=== PATIENT | female | born 2000 | race Two or more races ===

== ENCOUNTER 2024-06-22 08:30 | Outpatient (CLI) | payer OTHER | END 2024-06-22 08:32 | disposition home or self-care (01) | LOC: PRENATAL 08:30 | PROVIDERS: ATTEND Obstetrics & Gynecology Maternal & Fetal Medicine | DX: O36.80X0 Pregnancy with inconclusive fetal viability, not applicable or unspecified (principal); Z36.82 Encounter for antenatal screening for nuchal translucency; Z3A.13 13 weeks gestation of pregnancy ==

== ENCOUNTER 2024-08-07 14:55 | Outpatient (CLI) | payer OTHER | END 2024-08-07 14:56 | disposition home or self-care (01) | LOC: PRENATAL 14:55 | PROVIDERS: ATTEND Obstetrics & Gynecology Maternal & Fetal Medicine | DX: O44.00 Complete placenta previa NOS or without hemorrhage, unspecified trimester (principal); Z3A.20 20 weeks gestation of pregnancy ==

== ENCOUNTER → 2024-11-09 10:34 | Outpatient (CLI) | payer OTHER | END | disposition home or self-care (01) | LOC: PRENATAL 10:34 | PROVIDERS: ATTEND Obstetrics & Gynecology Maternal & Fetal Medicine | DX: O26.849 Uterine size-date discrepancy, unspecified trimester (principal); O36.8199 Decreased fetal movements, unspecified trimester, other fetus; Z3A.34 34 weeks gestation of pregnancy ==

== ENCOUNTER 2024-12-13 19:40 | Inpatient (IN) | payer OTHER ==
[~2024-12-13] VITALS: Ht 157.5 cm; Wt 81.6 kg
[2024-12-13 19:04] VITALS: BP 124/79
[2024-12-13] MEDS ORDERED: PRENATAL TABLE1 EAC4 PO (19:57)
[2024-12-13] MEDS ORDERED: RINGERS SOLUTION,LACTATED 1,000 ML IV SCH (20:00)
[2024-12-13 20:14] LABS: BASO % 0.3 % (0.1-1.2); EOS # 0.17 (0.04-0.54); EOS % 2.2 % (0.7-7.0); LYMPH # 1.88 (1.18-3.74); LYMPH % 24.3 % (19.3-53.1); MEAN PLATELET VOLUME 10.80 fl (9.4-12.4); MONO # 0.60 (0.24-0.82); MONO % 7.8 % (4.7-12.5); NEUT # 5.03 (1.56-6.13); NEUT % 64.9 % (34.0-71.1); RED CELL DISTRIBUTION WIDTH 13.1 % (11.6-14.4)
[2024-12-13 20:16] LABS: URINE APPEARANCE Clear; URINE BILIRRUBIN Negative (NEGATIVE); URINE BLOOD Large; URINE COLOR Yellow; URINE GLUCOSE Negative (NEGATIVE); URINE KETONE Negative (NEGATIVE); URINE LEUKOCYTE Small; URINE NITRATE Negative; URINE PROTEIN Negative (NEGATIVE); URINE UROBILINOGEN 0.2 E.U./dl
[2024-12-13 20:19] LABS: URINE BACTERIA 543.5 uL (0.0-1933); URINE EPITHELIAL CELLS 30.6 uL (0.0-38.8); URINE RBC 216.0 uL (0.0-20.8); URINE WBC 15.8 uL (0.0-23.2)
[2024-12-13 20:35] LABS: URINE CAST 0.00 uL (0.0-1.40)
[2024-12-13 23:12] VITALS: BP 127/75
[2024-12-14] VITALS (10 sets, daily range): BP systolic 108–138; BP diastolic 68–82
[2024-12-14] MEDS ORDERED: AMPICILLIN SODIUM 2,000 MG VIAL IV ONE (00:30)
[2024-12-14] MEDS ORDERED: MORPHINE SULFATE 4 MG/ML CARTRIDGE IV ONE (03:30)
[2024-12-14] MEDS ORDERED: AMPICILLIN SODIUM 1,000 MG VIAL IV SCH (05:00)
[2024-12-14] MEDS ORDERED: OXYTOCIN 500 ML IV SCH (10:15)
[2024-12-14] MEDS ORDERED: MORPHINE SULFATE 4 MG/ML VIAL IV ONE (11:45)
[2024-12-14] MEDS ORDERED: CHLORHEXIDINE GLUCONATE 120 ML BOTTLE TOP ONE (15:15)
[2024-12-14] MEDS ORDERED: OXYTOCIN 1,000 ML IV SCH ×2 (15:15→16:00)
[2024-12-14] MEDS ORDERED: OXYTOCIN 10 UNITS/ML VIAL IM STA (15:15)
[2024-12-14] MEDS ORDERED: ERYTHROMYCIN BASE OPHT 1GM EACH TUBE OP ONE (15:45)
[2024-12-14] MEDS ORDERED: LIDOCAINE HCL 1% 10ML VIAL PERCUT ONE (16:00)
[2024-12-14] MEDS ORDERED: CARBOPROST TROMETHAMINE 250 MCG/ML AMPUL IM ONE (16:00)
[2024-12-14 19:37] LABS: BASO % 0.1 % (0.1-1.2); EOS # 0.00 (0.04-0.54); EOS % 0.0 % (0.7-7.0); LYMPH # 0.91 (1.18-3.74); LYMPH % 5.5 % (19.3-53.1); MEAN PLATELET VOLUME 10.70 fl (9.4-12.4); MONO # 0.84 (0.24-0.82); MONO % 5.1 % (4.7-12.5); NEUT # 14.61 (1.56-6.13); NEUT % 88.8 % (34.0-71.1); RED CELL DISTRIBUTION WIDTH 13.1 % (11.6-14.4)
[2024-12-15] VITALS: BP 110/64
[2024-12-15 08:19] VITALS: BP 108/73
[2024-12-15 12:18] VITALS: BP 106/71
[2024-12-15 16:00] VITALS: BP 114/65
[2024-12-16] VITALS: BP 118/77
[2024-12-16 09:33] VITALS: BP 139/89
[2024-12-16 15:00] VITALS: BP 123/78
== END 2024-12-16 16:05 | disposition home or self-care (01) | DRG 807 ==
LOC: OBS/DEL 19:40 → OB/GYN 12-14 00:14 → LDR 12-14 00:14 → OB/GYN 12-14 15:22
PROVIDERS: Obstetrics & Gynecology; ADMIT Obstetrics & Gynecology; ATTEND Obstetrics & Gynecology
PROC: 10E0XZZ Delivery of Products of Conception, External Approach (ICD-10-PCS; principal; 2024-12-14)
PROC: 0HQ9XZZ Repair Perineum Skin, External Approach (ICD-10-PCS; 2024-12-14)
PROC: 4A1HXCZ Monitoring of Products of Conception, Cardiac Rate, External Approach (ICD-10-PCS; 2024-12-14)
DX: O70.0 First degree perineal laceration during delivery (principal); Z37.0 Single live birth; Z3A.37 37 weeks gestation of pregnancy